=== PATIENT | male | born 1965 | race Caucasian/White ===

== ENCOUNTER 2023-12-20 11:00 | Emergency (ER) | payer SELFPAY ==
[~2023-12-20] VITALS: Ht 167.6 cm; Wt 79.0 kg
[2023-12-20 11:19] VITALS: BP 131/68; PULSE 80; RESP 16; TEMP 98; O2SAT 99
[2023-12-20] MEDS ORDERED: IBUP-2028 MT (12:11)
== END 2023-12-20 12:45 | disposition home or self-care (01) ==
LOC: ER 11:00
DX: M25.511 Pain in right shoulder (principal); V19.9XXA Pedal cyclist (driver) (passenger) injured in unspecified traffic accident, initial encounter; Y93.89 Activity, other specified; Y92.89 Other specified places as the place of occurrence of the external cause; Y99.8 Other external cause status
CPT/HCPCS: 73030; 99283